=== PATIENT | male | born 1935 | race Caucasian/White ===

== ENCOUNTER → 2023-06-02 | Outpatient (CLI) | payer MEDICARE, BC, OTHER ==
[~2023-06-02] MED LIST: ASPI81TA86 PO; COLBTA PO; COVI100V IM; ECOT81TA5 PO; IRBE300T7 PO; ISOVUE-370 76% 100ML VIAL As Ordered ONE; TERA10CA3 PO; TOPR50TA PO; VALS1TAB68 PO; VITA500C3 PO
== END ==
LOC: M RAD 12:48
PROVIDERS: ATTEND Nurse Practitioner
DX: C91.40 Hairy cell leukemia not having achieved remission (principal); R91.8 Other nonspecific abnormal finding of lung field
CPT/HCPCS: 71260; Q9967

== ENCOUNTER → 2023-06-12 | Outpatient (CLI) | payer MEDICARE, BC, OTHER ==
[~2023-06-12] MED LIST changes: -ISOVUE-370 76% 100ML VIAL As Ordered ONE
== END ==
LOC: M PLARAD 10:33
PROVIDERS: ATTEND Nurse Practitioner
DX: R91.8 Other nonspecific abnormal finding of lung field (principal)
CPT/HCPCS: 78815; A9552

== ENCOUNTER → 2023-07-06 | Outpatient (CLI) | payer MEDICARE, BC, OTHER ==
[2023-07-06 12:20] LABS: BASO % 0.5 % (0.0-1.0); EOS # 0.1 10^3/uL (0.0-0.5); EOS % 1.2 % (0.0-3.0); HEMATOCRIT 38.6 % (42.0-52.0); LYMPH # 1.4 10^3/uL (1.5-5.0); LYMPH % 23.5 % (24.0-44.0); MEAN CORPUSCULAR HEMOGLOBIN 32.7 pg (27.0-33.0); MEAN CORPUSCULAR HGB CONC 33.7 g/dl (32.0-36.5); MEAN CORPUSCULAR VOLUME 97.2 fl (80.0-96.0); MONO # 0.5 10^3/uL (0.0-0.8); MONO % 8.2 % (2.0-8.0); NEUTROPHILS # 3.9 10^3/uL (1.5-8.5); NEUTROPHILS % 66.3 % (36.0-66.0); PLATELET COUNT, AUTOMATED 204 10^3/uL (150-450); RED BLOOD COUNT 3.97 10^6/uL (4.30-6.10); WHITE BLOOD COUNT 5.9 10^3/uL (4.0-10.0)
[2023-07-06 12:48] LABS: ALBUMIN 3.2 G/DL (3.2-5.2); ALKALINE PHOSPHATASE 103 U/L (46-116); ALT/SGPT 37 U/L (7.0-40); AST/SGOT 27 U/L (<34); BILIRUBIN,DIRECT 0.2 MG/DL (<0.4); BILIRUBIN,TOTAL 0.5 MG/DL (0.3-1.2); CALCIUM LEVEL 9.9 MG/DL (8.3-10.6); CREATININE FOR GFR 0.74 MG/DL (0.70-1.30); GLOMERULAR FILTRATION RATE > 60.0 (>35); TOTAL PROTEIN 6.8 G/DL (5.7-8.2)
== END ==
LOC: M LAB 11:29
PROVIDERS: ATTEND Internal Medicine Pulmonary Disease
DX: R91.8 Other nonspecific abnormal finding of lung field (principal)

== ENCOUNTER → 2023-07-14 | Outpatient (CLI) | payer MEDICARE, BC, OTHER | LOC: M ONCR 10:05 | PROVIDERS: ATTEND General Practice | DX: R91.8 Other nonspecific abnormal finding of lung field (principal); R59.0 Localized enlarged lymph nodes; C91.41 Hairy cell leukemia, in remission; Z71.2 Person consulting for explanation of examination or test findings; Z79.82 Long term (current) use of aspirin; Z79.899 Other long term (current) drug therapy; Z87.891 Personal history of nicotine dependence; Z88.0 Allergy status to penicillin; Z88.1 Allergy status to other antibiotic agents; Z88.6 Allergy status to analgesic agent ==

== ENCOUNTER → 2023-08-16 | Outpatient (CLI) | payer MEDICARE, BC, OTHER ==
[~2023-08-16] MED LIST changes: +IRBE300T25 PO; -IRBE300T7 PO
== END ==
LOC: M ONCR 09:43
PROVIDERS: ATTEND General Practice
DX: R91.8 Other nonspecific abnormal finding of lung field (principal); C91.41 Hairy cell leukemia, in remission; Z71.2 Person consulting for explanation of examination or test findings; Z88.0 Allergy status to penicillin; Z88.1 Allergy status to other antibiotic agents; Z79.82 Long term (current) use of aspirin; Z79.899 Other long term (current) drug therapy; Z87.891 Personal history of nicotine dependence

== ENCOUNTER 2023-08-30 08:54 | Day surgery (SDC) | payer MEDICARE, BC, OTHER ==
[~2023-08-30] VITALS: Ht 177.8 cm; Wt 64.4 kg
[~2023-08-30 08:54] MED LIST changes: -COLBTA PO; +EPINEPHrine 1MG/10ML SYRINGE 1.5IN As Ordered ONE; +LR 1,000 ML IV SCH; +PROB1TAB PO
[2023-08-30] MEDS ORDERED: fentaNYL 100 MCG/2 ML INJECTION As Ordered ONE (10:11)
[2023-08-30] MEDS ORDERED: LIDOCAINE 2% 100MG/5ML SDV (FOR ANES.) As Ordered ONE (10:12)
[2023-08-30] MEDS ORDERED: propofoL 200 MG/20 ML VIAL As Ordered ONE (10:12)
[2023-08-30] MEDS ORDERED: ROCURONIUM BROMIDE 50MG/5ML VIAL As Ordered ONE (10:12)
[2023-08-30] MEDS ORDERED: ONDANSETRON 4MG 2ML VIAL As Ordered ONE (10:12)
[2023-08-30] MEDS ORDERED: SUGAMMADEX SODIUM 500 MG/5 ML VIAL (BRIDION) As Ordered ONE (10:12)
[2023-08-30] MEDS: CETACAINE SPRAY 5GM As Ordered ONE (11:49)
[2023-08-30] MEDS ORDERED: fentaNYL 100 MCG/2 ML INJECTION IV PRN (12:30)
[2023-08-30] MEDS ORDERED: ONDANSETRON 4MG 2ML VIAL IV PRN (12:30)
[2023-08-30] MEDS ORDERED: HYDROMORPHONE HCL 0.5 MG/ 0.5 ML SYRINGE IV PRN (12:30)
[2023-08-30] MEDS ORDERED: oxyCODONE 5MG TAB PO PRN (12:30)
[2023-08-30] MEDS ORDERED: LR 1,000 ML IV SCH (12:30)
[2023-08-30] MEDS ORDERED: ESMOLOL INJ 100MG/10ML VIAL As Ordered ONE (13:34)
[2023-08-30 14:20] VITALS: BP 149/68; TEMP 97.2; O2SAT 100
== END 2023-08-30 14:42 | disposition home or self-care (01) ==
LOC: M SDC 08:54
PROVIDERS: ATTEND Internal Medicine Critical Care Medicine
DX: C77.1 Secondary and unspecified malignant neoplasm of intrathoracic lymph nodes (principal); C80.1 Malignant (primary) neoplasm, unspecified; I10 Essential (primary) hypertension; Z79.899 Other long term (current) drug therapy; Z79.82 Long term (current) use of aspirin; Z85.828 Personal history of other malignant neoplasm of skin; Z95.0 Presence of cardiac pacemaker; Z85.6 Personal history of leukemia; Z88.0 Allergy status to penicillin; Z88.8 Allergy status to other drugs, medicaments and biological substances; Z88.6 Allergy status to analgesic agent; Z87.891 Personal history of nicotine dependence
CPT/HCPCS: 31622; 31654; 71045; 88173; 88305; J1100; J1805; J2405; J3010

== ENCOUNTER → 2023-09-07 | Outpatient (CLI) | payer MEDICARE, BC, OTHER ==
[~2023-09-07] MED LIST changes: -EPINEPHrine 1MG/10ML SYRINGE 1.5IN As Ordered ONE; -LR 1,000 ML IV SCH
== END ==
LOC: M ONCR 11:10
PROVIDERS: ATTEND General Practice
DX: C34.11 Malignant neoplasm of upper lobe, right bronchus or lung (principal); C91.41 Hairy cell leukemia, in remission; Z71.2 Person consulting for explanation of examination or test findings; Z87.891 Personal history of nicotine dependence; Z88.0 Allergy status to penicillin; Z88.1 Allergy status to other antibiotic agents; Z88.8 Allergy status to other drugs, medicaments and biological substances; Z79.82 Long term (current) use of aspirin; Z79.899 Other long term (current) drug therapy

== ENCOUNTER 2023-09-15 10:14 | Outpatient (RCR) | payer MEDICARE, BC, OTHER | END 2023-09-21 | LOC: M ONCR 10:14 | PROVIDERS: ATTEND General Practice | DX: Z51.0 Encounter for antineoplastic radiation therapy (principal); C34.11 Malignant neoplasm of upper lobe, right bronchus or lung ==

== ENCOUNTER 2023-10-10 12:53 | Outpatient (RCR) | payer MEDICARE, BC, OTHER ==
[~2023-10-10 12:53] MED LIST changes: +DEXA4TA PO; +FOLI1TAB11 PO; +MUCI1TAB16 PO
== END 2023-10-22 ==
LOC: M ONCR 12:53
PROVIDERS: ATTEND General Practice
DX: Z51.0 Encounter for antineoplastic radiation therapy (principal); C34.11 Malignant neoplasm of upper lobe, right bronchus or lung

== ENCOUNTER → 2023-10-18 | Outpatient (CLI) | payer MEDICARE, BC ==
[~2023-10-18] MED LIST changes: +LIDOCAINE W/EPINEPHRINE 1% 20ML VIAL As Ordered ONE; +MIDAZOLAM INJ 2MG/2ML VIAL As Ordered ONE; +NS 1,000 ML IV SCH; +ceFAZolin 2 GM/D5W 50 ML IV BAG As Ordered ONE; +ceFAZolin SOD 2 GM in IV 1 EA IV ONE; +fentaNYL 100 MCG/2 ML INJECTION As Ordered ONE
[2023-10-18 14:09] VITALS: BP 105/53; O2SAT 94
== END ==
LOC: M IRPRO 12:03
PROVIDERS: ATTEND Internal Medicine Medical Oncology
DX: C34.90 Malignant neoplasm of unspecified part of unspecified bronchus or lung (principal)
CPT/HCPCS: 36561; 99152; 99153; J0690; J2250; J3010

== ENCOUNTER 2023-11-05 21:02 | Inpatient (IN) | payer MEDICARE, BC ==
[~2023-11-05] VITALS: Ht 167.6 cm; Wt 62.7 kg
[~2023-11-05 21:02] MED LIST changes: -LIDOCAINE W/EPINEPHRINE 1% 20ML VIAL As Ordered ONE; -MIDAZOLAM INJ 2MG/2ML VIAL As Ordered ONE; -NS 1,000 ML IV SCH; +ONDA-84 PO; +PROC10TA5 PO; -ceFAZolin 2 GM/D5W 50 ML IV BAG As Ordered ONE; -ceFAZolin SOD 2 GM in IV 1 EA IV ONE; -fentaNYL 100 MCG/2 ML INJECTION As Ordered ONE
[2023-11-05 21:31] LABS: HEMATOCRIT 22.7 % (42.0-52.0); HEMOGLOBIN 7.5 g/dl (13.5-17.5); LYMPH # 0.1 10^3/uL (1.5-5.0); LYMPH % 10.9 % (24.0-44.0); MEAN CORPUSCULAR HEMOGLOBIN 31.5 pg (27.0-33.0); MEAN CORPUSCULAR VOLUME 95.4 fl (80.0-96.0); NEUTROPHILS % 82.1 % (36.0-66.0); RED BLOOD COUNT 2.38 10^6/uL (4.30-6.10)
[2023-11-05 21:45] LABS: NEUTROPHILS # 0.8 10^3/uL (1.5-8.5)
[2023-11-05 21:48] LABS: PLATELET COUNT, AUTOMATED 9 10^3/uL (150-450)
[2023-11-05 22:01] LABS: CK-MB VALUE MASS 3.8 NG/ML (<3.6)
[2023-11-05 22:02] LABS: CPK CREATINE PHOSPHOKINASE 34 U/L (46-171); MB/CK RELATIVE INDEX 11.17 (< OR =4)
[2023-11-05 22:03] LABS: ALBUMIN 1.6 G/DL (3.2-5.2); ALKALINE PHOSPHATASE 82 U/L (46-116); ALT/SGPT 22 U/L (7.0-40); AST/SGOT 32 U/L (<34); BILIRUBIN,DIRECT 0.4 MG/DL (<0.4); BILIRUBIN,TOTAL 0.7 MG/DL (0.3-1.2); BLOOD UREA NITROGEN 70 MG/DL (9-23); CALCIUM LEVEL 8.1 MG/DL (8.3-10.6); CARBON DIOXIDE LEVEL 25 MMOL/L (20-31); CHLORIDE LEVEL 107 MMOL/L (98-107); CREATININE FOR GFR 0.87 MG/DL (0.70-1.30); GLOMERULAR FILTRATION RATE > 60.0 (>35); GLUCOSE, FASTING 113 MG/DL (74-106); POTASSIUM SERUM 3.7 MMOL/L (3.5-5.1); SODIUM LEVEL 142 MMOL/L (136-145); TOTAL PROTEIN 4.9 G/DL (5.7-8.2)
[2023-11-05 22:05] LABS: THYROID STIMULATING HORMONE 1.268 uIU/ML (0.55-4.78)
[2023-11-05] MEDS: NS 1,000 ML IV SCH (22:15)
[2023-11-05] MEDS ORDERED: HOME MED LIST COMPLETE! XX SCH (23:45)
[2023-11-05] MEDS ORDERED: ACETAMINOPHEN TAB 650MG DOSE (2X325MG) PO PRN (23:55)
[2023-11-05] MEDS ORDERED: MOM 30ML SUSPENSION UDC PO PRN (23:55)
[2023-11-06] VITALS (14 sets, daily range): BP systolic 97–124; BP diastolic 32–55; TEMP 97.5–98.6; O2SAT 18–100
[2023-11-06 00:54] LABS: MB/CK RELATIVE INDEX 11.42 (< OR =4)
[2023-11-06] MEDS: NS 1,000 ML IV SCH (02:36)
[2023-11-06 07:00] LABS: MEAN CORPUSCULAR HEMOGLOBIN 31.4 pg (27.0-33.0); MEAN CORPUSCULAR HGB CONC 33.1 g/dl (32.0-36.5); MEAN CORPUSCULAR VOLUME 94.7 fl (80.0-96.0); RED BLOOD COUNT 1.88 10^6/uL (4.30-6.10)
[2023-11-06 07:20] LABS: BLOOD UREA NITROGEN 62 MG/DL (9-23); CALCIUM LEVEL 7.5 MG/DL (8.3-10.6); CARBON DIOXIDE LEVEL 25 MMOL/L (20-31); CHLORIDE LEVEL 110 MMOL/L (98-107); GLOMERULAR FILTRATION RATE > 60.0 (>35); GLUCOSE, FASTING 96 MG/DL (74-106); POTASSIUM SERUM 3.3 MMOL/L (3.5-5.1); SODIUM LEVEL 142 MMOL/L (136-145)
[2023-11-06 07:44] LABS: HEMATOCRIT 17.8 % (42.0-52.0); WHITE BLOOD COUNT 0.7 10^3/uL (4.0-10.0)
[2023-11-06 07:55] LABS: PLATELET COUNT, AUTOMATED 20 10^3/uL (150-450)
[2023-11-06 07:56] LABS: HEMOGLOBIN 5.9 g/dl (13.5-17.5)
[2023-11-06 08:51] LABS: BASOPHILS 2 % (0-1); EOSINOPHILS 2 % (0-3); LYMPHOCYTES 16 % (16-44); MONOCYTES 4 % (0-5); NEUTROPHILS 71 % (28-66)
[2023-11-06 08:56] LABS: LYMPH # 0.1 10^3/uL (1.5-5.0); LYMPH % 19.4 % (24.0-44.0); MONO # 0.1 10^3/uL (0.0-0.8); MONO % 6.9 % (2.0-8.0); NEUTROPHILS % 72.3 % (36.0-66.0)
[2023-11-06 08:57] LABS: PLATELET ESTIMATE MARKED DECREASE (NORMAL)
[2023-11-06] MEDS: DOCUSATE SODIUM 100MG CAPSULE PO SCH (09:00)
[2023-11-06 09:01] LABS: NEUTROPHILS # 0.5 10^3/uL (1.5-8.5)
[2023-11-06 10:14] LABS: HEMATOCRIT 24.1 % (42.0-52.0); HEMOGLOBIN 7.8 g/dl (13.5-17.5); MEAN CORPUSCULAR HEMOGLOBIN 30.7 pg (27.0-33.0); MEAN CORPUSCULAR HGB CONC 32.4 g/dl (32.0-36.5); MEAN CORPUSCULAR VOLUME 94.9 fl (80.0-96.0); RED BLOOD COUNT 2.54 10^6/uL (4.30-6.10); WHITE BLOOD COUNT 1.1 10^3/uL (4.0-10.0)
[2023-11-06 10:29] LABS: PLATELET COUNT, AUTOMATED 23 10^3/uL (150-450)
[2023-11-06 14:25] LABS: MAGNESIUM LEVEL 2.1 MG/DL (1.8-2.4); PHOSPHORUS LEVEL 3.2 MG/DL (2.4-5.1)
[2023-11-06] MEDS: VANCOMYCIN HCL 1,000 MG, VIAL MATE ADAPTER 1 EACH in NS 250 ML IV ONE (14:37)
[2023-11-06 15:36] LABS: HEMATOCRIT 23.5 % (42.0-52.0); HEMOGLOBIN 7.8 g/dl (13.5-17.5); MEAN CORPUSCULAR HGB CONC 33.2 g/dl (32.0-36.5); MEAN CORPUSCULAR VOLUME 93.3 fl (80.0-96.0); RED BLOOD COUNT 2.52 10^6/uL (4.30-6.10); WHITE BLOOD COUNT 1.1 10^3/uL (4.0-10.0)
[2023-11-06 15:41] LABS: PLATELET COUNT, AUTOMATED 23 10^3/uL (150-450)
[2023-11-06] MEDS: FILGRASTIM 300MCG 0.5ML SYRINGE **SC ADMINISTRATION ONLY SC SCH (16:18)
[2023-11-06] MEDS: CEFEPIME HCL 2 GM in D5W MINI-BAG PLUS 50 ML IV SCH (16:18)
[2023-11-07 06:00] VITALS: BP 120/51; TEMP 98.1; O2SAT 97
[2023-11-07 06:43] LABS: HEMOGLOBIN 8.4 g/dl (13.5-17.5); MEAN CORPUSCULAR HEMOGLOBIN 30.9 pg (27.0-33.0); MEAN CORPUSCULAR HGB CONC 32.3 g/dl (32.0-36.5); MEAN CORPUSCULAR VOLUME 95.6 fl (80.0-96.0); RED BLOOD COUNT 2.72 10^6/uL (4.30-6.10); WHITE BLOOD COUNT 2.5 10^3/uL (4.0-10.0)
[2023-11-07 06:49] LABS: PLATELET COUNT, AUTOMATED 23 10^3/uL (150-450)
[2023-11-07 07:03] LABS: ALBUMIN 1.5 G/DL (3.2-5.2); ALKALINE PHOSPHATASE 80 U/L (46-116); ALT/SGPT 23 U/L (7.0-40); AST/SGOT 22 U/L (<34); BILIRUBIN,TOTAL 0.6 MG/DL (0.3-1.2); BLOOD UREA NITROGEN 47 MG/DL (9-23); CALCIUM LEVEL 8.2 MG/DL (8.3-10.6); CARBON DIOXIDE LEVEL 24 MMOL/L (20-31); CHLORIDE LEVEL 114 MMOL/L (98-107); CREATININE FOR GFR 0.64 MG/DL (0.70-1.30); GLOMERULAR FILTRATION RATE > 60.0 (>35); GLUCOSE, FASTING 74 MG/DL (74-106); POTASSIUM SERUM 3.4 MMOL/L (3.5-5.1); SODIUM LEVEL 146 MMOL/L (136-145); TOTAL PROTEIN 4.5 G/DL (5.7-8.2)
[2023-11-07] MEDS ORDERED: dexAMETHasone 4 MG TAB PO SCH (07:50)
[2023-11-07 08:00] LABS: VANCOMYCIN RANDOM 5.8 UG/ML
[2023-11-07 08:04] LABS: BASO % 0.4 % (0.0-1.0); EOS % 0.4 % (0.0-3.0); LYMPH # 0.2 10^3/uL (1.5-5.0); LYMPH % 8.8 % (24.0-44.0); MONO # 0.1 10^3/uL (0.0-0.8); MONO % 2.8 % (2.0-8.0); NEUTROPHILS # 1.5 10^3/uL (1.5-8.5); NEUTROPHILS % 58.4 % (36.0-66.0)
[2023-11-07 08:24] LABS: CK-MB VALUE MASS 2.9 NG/ML (<3.6)
[2023-11-07 08:25] LABS: CPK CREATINE PHOSPHOKINASE 25 U/L (46-171)
[2023-11-07 08:30] VITALS: BP 116/52; TEMP 97.9; O2SAT 94
[2023-11-07 08:38] LABS: PROCALCITONIN 0.28 ng/ml
[2023-11-07] MEDS: POTASSIUM CHLORIDE 10% LIQ 20MEQ/15ML UDC PO ONE (08:44)
[2023-11-07] MEDS ORDERED: VANCOMYCIN HCL 750 MG, VIAL MATE ADAPTER 1 EACH in D5W 250 ML IV SCH (09:00)
[2023-11-07 09:02] LABS: ATYPICAL LYMPH 2 % (0-5); EOSINOPHILS 1 % (0-3); LYMPHOCYTES 10 % (16-44); MONOCYTES 3 % (0-5); NEUTROPHILS 77 % (28-66)
[2023-11-07 09:03] LABS: ANISOCYTOSIS 1+; PLATELET ESTIMATE MARKED DECREASE (NORMAL)
[2023-11-07] MEDS: PROBENECID 500 MG TAB PO SCH (09:28)
[2023-11-07] MEDS: COLCHICINE 0.6 MG TABLET PO SCH (09:28)
[2023-11-07] MEDS: VANCOMYCIN HCL 750 MG, VIAL MATE ADAPTER 1 EACH in D5W 250 ML IV SCH (09:30)
[2023-11-07] MEDS ORDERED: VANCOMYCIN HCL 500 MG in D5W MINI-BAG PLUS 100 ML IV SCH (10:00)
[2023-11-07] MEDS: FUROSEMIDE 20MG/2ML VIAL IV SCH (12:25)
[2023-11-07] MEDS: DOXYCYCLINE HYCLATE 100MG TABLET PO SCH (12:26)
[2023-11-07] MEDS: cefTRIAXone SOD 1 GM in D5W MINI-BAG PLUS 50 ML IV SCH (12:26)
[2023-11-07 14:30] VITALS: BP 110/38; TEMP 97.9; O2SAT 97
[2023-11-07] MEDS ORDERED: PROCHLORPERAZINE 5MG TAB PO PRN (19:40)
[2023-11-07] MEDS ORDERED: ONDANSETRON 4MG TAB PO PRN (19:40)
[2023-11-07 22:00] VITALS: BP 126/53; TEMP 98.4; O2SAT 97
[2023-11-08] VITALS (50 sets, daily range): BP systolic 94–144; BP diastolic 46–63; TEMP 97.7–98.9; O2SAT 95–100
[2023-11-08 06:14] LABS: HEMATOCRIT 25.3 % (42.0-52.0); HEMOGLOBIN 8.2 g/dl (13.5-17.5); MEAN CORPUSCULAR HEMOGLOBIN 30.8 pg (27.0-33.0); MEAN CORPUSCULAR HGB CONC 32.4 g/dl (32.0-36.5); MEAN CORPUSCULAR VOLUME 95.1 fl (80.0-96.0); RED BLOOD COUNT 2.66 10^6/uL (4.30-6.10); WHITE BLOOD COUNT 4.4 10^3/uL (4.0-10.0)
[2023-11-08 06:16] LABS: PLATELET COUNT, AUTOMATED 26 10^3/uL (150-450)
[2023-11-08 06:45] LABS: ALBUMIN 1.6 G/DL (3.2-5.2); ALKALINE PHOSPHATASE 85 U/L (46-116); ALT/SGPT 22 U/L (7.0-40); AST/SGOT 18 U/L (<34); BILIRUBIN,TOTAL 0.5 MG/DL (0.3-1.2); BLOOD UREA NITROGEN 37 MG/DL (9-23); CALCIUM LEVEL 8.2 MG/DL (8.3-10.6); CARBON DIOXIDE LEVEL 26 MMOL/L (20-31); CHLORIDE LEVEL 112 MMOL/L (98-107); CREATININE FOR GFR 0.64 MG/DL (0.70-1.30); GLOMERULAR FILTRATION RATE > 60.0 (>35); GLUCOSE, FASTING 90 MG/DL (74-106); POTASSIUM SERUM 3.3 MMOL/L (3.5-5.1); SODIUM LEVEL 144 MMOL/L (136-145); TOTAL PROTEIN 4.4 G/DL (5.7-8.2)
[2023-11-08 06:58] LABS: LYMPHOCYTES 8 % (16-44); METAMYELOCYTES 2 % (0-0); MONOCYTES 2 % (0-5); MYELOCYTES 2 % (0-0); NEUTROPHILS 80 % (28-66)
[2023-11-08 06:59] LABS: ANISOCYTOSIS 1+; PLATELET ESTIMATE MARKED DECREASE (NORMAL)
[2023-11-08] MEDS: ASPIRIN 81MG ENTERIC TABLET PO SCH (08:59)
[2023-11-08] MEDS: guaiFENesin ER TABLET 600 MG TAB PO SCH (08:59)
[2023-11-08] MEDS: PANTOPRAZOLE 40MG TAB (PROTONIX) PO SCH (09:00)
[2023-11-08] MEDS: POTASSIUM CHLORIDE 10MEQ SR TABLET PO ONE (09:00)
[2023-11-08] MEDS: FOLIC ACID 1MG TAB PO SCH (09:04)
[2023-11-08] MEDS: POTASSIUM CHLORIDE 10MEQ SR TABLET PO SCH (10:13)
[2023-11-08 10:47] LABS: CK-MB VALUE MASS 2.2 NG/ML (<3.6); CPK CREATINE PHOSPHOKINASE 27 U/L (46-171); MB/CK RELATIVE INDEX 8.14 (< OR =4)
[2023-11-08] MEDS ORDERED: LIDOCAINE 1% MDV 20ML VIAL SC ONE (14:25)
[2023-11-08] MEDS ORDERED: fentaNYL 100 MCG/2 ML INJECTION As Ordered ONE (14:30)
[2023-11-08] MEDS ORDERED: LIDOCAINE 1% MDV 20ML VIAL As Ordered ONE (14:31)
[2023-11-08] MEDS ORDERED: fentaNYL 100 MCG/2 ML INJECTION IV ONE (14:45)
[2023-11-08] MEDS: ACETAMINOPHEN *IV* 1,000 MG in IV 1 EA IV ONE (21:35)
[2023-11-09] VITALS (11 sets, daily range): BP systolic 98–129; BP diastolic 50–80; TEMP 97.5–98.3; O2SAT 94–100
[2023-11-09] MEDS: ACETAMINOPHEN *IV* 1,000 MG in IV 1 EA IV ONE (04:29)
[2023-11-09 05:33] LABS: ALBUMIN 1.4 G/DL (3.2-5.2); ALKALINE PHOSPHATASE 81 U/L (46-116); ALT/SGPT 18 U/L (7.0-40); AST/SGOT 13 U/L (<34); BILIRUBIN,TOTAL 0.4 MG/DL (0.3-1.2); BLOOD UREA NITROGEN 38 MG/DL (9-23); CALCIUM LEVEL 7.6 MG/DL (8.3-10.6); CARBON DIOXIDE LEVEL 26 MMOL/L (20-31); CHLORIDE LEVEL 112 MMOL/L (98-107); CREATININE FOR GFR 0.72 MG/DL (0.70-1.30); GLOMERULAR FILTRATION RATE > 60.0 (>35); GLUCOSE, FASTING 100 MG/DL (74-106); POTASSIUM SERUM 3.9 MMOL/L (3.5-5.1); SODIUM LEVEL 146 MMOL/L (136-145); TOTAL PROTEIN 4.4 G/DL (5.7-8.2)
[2023-11-09 05:38] LABS: HEMATOCRIT 25.3 % (42.0-52.0); HEMOGLOBIN 8.1 g/dl (13.5-17.5); MEAN CORPUSCULAR HEMOGLOBIN 30.5 pg (27.0-33.0); MEAN CORPUSCULAR VOLUME 95.1 fl (80.0-96.0); RED BLOOD COUNT 2.66 10^6/uL (4.30-6.10); WHITE BLOOD COUNT 6.2 10^3/uL (4.0-10.0)
[2023-11-09 05:43] LABS: PLATELET COUNT, AUTOMATED 49 10^3/uL (150-450)
[2023-11-09 06:55] LABS: LYMPHOCYTES 7 % (16-44); MONOCYTES 1 % (0-5); MYELOCYTES 1 % (0-0); NEUTROPHILS 87 % (28-66)
[2023-11-09 06:56] LABS: ANISOCYTOSIS 1+; PLATELET ESTIMATE DECREASED (NORMAL)
[2023-11-09] MEDS ORDERED: ONDANSETRON 4MG 2ML VIAL IV PRN (13:50)
[2023-11-09] MEDS: SODIUM CHLORIDE HYPERTONIC 3% 4ML NEB SOL INH SCH (15:14)
[2023-11-09] MEDS: ALBUTEROL SULFATE 2.5MG/0.5ML INH NEB SOLN NEB SCH (15:14)
[2023-11-09] MEDS: PANTOPRAZOLE 40MG VIAL IV SCH (15:21)
[2023-11-09] MEDS: DOXYCYCLINE HYCLATE 100 MG in D5W MINI-BAG PLUS 100 ML IV SCH (20:15)
[2023-11-10 04:08] VITALS: BP 118/58; TEMP 97.4; O2SAT 94
[2023-11-10 06:27] LABS: BASO # 0.1 10^3/uL (0.0-0.2); EOS % 0.1 % (0.0-3.0); HEMATOCRIT 26.7 % (42.0-52.0); HEMOGLOBIN 8.5 g/dl (13.5-17.5); LYMPH # 0.3 10^3/uL (1.5-5.0); MEAN CORPUSCULAR HEMOGLOBIN 30.6 pg (27.0-33.0); MEAN CORPUSCULAR HGB CONC 31.8 g/dl (32.0-36.5); MONO # 0.2 10^3/uL (0.0-0.8); MONO % 1.8 % (2.0-8.0); NEUTROPHILS # 6.7 10^3/uL (1.5-8.5); NEUTROPHILS % 80.2 % (36.0-66.0); PLATELET COUNT, AUTOMATED 73 10^3/uL (150-450); RED BLOOD COUNT 2.78 10^6/uL (4.30-6.10); WHITE BLOOD COUNT 8.3 10^3/uL (4.0-10.0)
[2023-11-10 06:58] LABS: ALBUMIN 1.6 G/DL (3.2-5.2); ALKALINE PHOSPHATASE 102 U/L (46-116); ALT/SGPT 11 U/L (7.0-40); AST/SGOT 14 U/L (<34); BILIRUBIN,TOTAL 0.3 MG/DL (0.3-1.2); BLOOD UREA NITROGEN 39 MG/DL (9-23); CALCIUM LEVEL 8.3 MG/DL (8.3-10.6); CARBON DIOXIDE LEVEL 24 MMOL/L (20-31); CHLORIDE LEVEL 110 MMOL/L (98-107); CREATININE FOR GFR 0.64 MG/DL (0.70-1.30); GLOMERULAR FILTRATION RATE > 60.0 (>35); GLUCOSE, FASTING 79 MG/DL (74-106); POTASSIUM SERUM 3.8 MMOL/L (3.5-5.1); SODIUM LEVEL 143 MMOL/L (136-145); TOTAL PROTEIN 4.7 G/DL (5.7-8.2)
[2023-11-10 07:42] VITALS: BP 122/56; TEMP 97.6; O2SAT 97
[2023-11-10] MEDS ORDERED: MORPHINE 10MG/0.5ML ORAL CONCENTRATE SOLUTION U/D SL PRN (09:00)
[2023-11-10] MEDS ORDERED: PILL CUTTER 1 EACH XX ONE (10:02)
[2023-11-10] MEDS: DOXYCYCLINE HYCLATE 100MG TABLET PO SCH (10:11)
[2023-11-10] MEDS: LORazepam 1 MG TAB PO PRN (18:47)
[2023-11-10] MEDS: ATROPINE SULFATE 1% OPHTH SOLN 2ML BTL SL PRN (21:45)
[2023-11-11] MEDS: SCOPOLAMINE 1MG TRANSDERMAL PATCH TOP PRN (09:56)
[2023-11-14] MEDS ORDERED: MORP1SOL5 PO (14:48)
[2023-11-14] MEDS ORDERED: ATIV1TAB10 PO (14:48)
[2023-11-14] MEDS ORDERED: HYOS125TA PO (14:48)
[2023-11-15] MEDS ORDERED: ALBUTEROL SULFATE 2.5MG/0.5ML INH NEB SOLN NEB PRN (18:10)
== END 2023-11-16 09:53 | disposition hospice, home (50) | DRG 640 ==
LOC: M ED 21:02 → EDBD 21:02 → M ED INP 23:32 → ENRESERV 11-06 00:14 → M MSPAV 11-06 02:14 → M ED INP 11-08 09:52 → M MSPAV 11-08 10:15 → M ICU 11-08 11:08 → M PCU 11-09 18:09 → M MSPAV 11-10 10:30
PROVIDERS: ADMIT Family Medicine; ATTEND Student in an Organized Health Care Education/Training Program
PROC: 30233N1 Transfusion of Nonautologous Red Blood Cells into Peripheral Vein, Percutaneous Approach (ICD-10-PCS; principal; 2023-11-06)
PROC: 30233R1 Transfusion of Nonautologous Platelets into Peripheral Vein, Percutaneous Approach (ICD-10-PCS; 2023-11-06)
PROC: 0W9D3ZZ Drainage of Pericardial Cavity, Percutaneous Approach (ICD-10-PCS; 2023-11-08)
PROC: B246ZZZ Ultrasonography of Right and Left Heart (ICD-10-PCS; 2023-11-09)
DX: E86.0 Dehydration (principal); E43 Unspecified severe protein-calorie malnutrition; D61.810 Antineoplastic chemotherapy induced pancytopenia; J18.9 Pneumonia, unspecified organism; I31.4 Cardiac tamponade; C34.92 Malignant neoplasm of unspecified part of left bronchus or lung; I24.89 Other forms of acute ischemic heart disease; J91.8 Pleural effusion in other conditions classified elsewhere; Z66 Do not resuscitate; R13.10 Dysphagia, unspecified; E87.0 Hyperosmolality and hypernatremia; I10 Essential (primary) hypertension; D69.6 Thrombocytopenia, unspecified; M10.9 Gout, unspecified; Z87.891 Personal history of nicotine dependence; Z79.82 Long term (current) use of aspirin; Z79.899 Other long term (current) drug therapy; Z88.0 Allergy status to penicillin; Z88.1 Allergy status to other antibiotic agents; Z88.8 Allergy status to other drugs, medicaments and biological substances; Z85.6 Personal history of leukemia